=== PATIENT | female | born 1970 | race Caucasian/White ===

== ENCOUNTER 2017-08-04 08:15 | Day surgery (SDC) | payer MEDICAID ==
[~2017-08-04 08:15] MED LIST: CEFAZOLIN 1 GM INJ; CEFAZOLIN 1 GM/50 ML (PMX) 50 ML IVPB; FAMOTIDINE 20 MG INJ; SOD CHLORIDE 0.9% 1,000 ML IV
[2017-08-04 10:07] LABS: ADD MAN DIFF? NO
[2017-08-04 10:09] LABS: BASOPHIL # 0.1 10^3/ul (0.0-0.1); BASOPHILS % 0.8 % (0.0-2.0); EOSINOPHILS % 0.6 % (0.0-7.0); HEMATOCRIT 40.1 % (37.0-47.0); HEMOGLOBIN 13.7 g/dl (12.0-16.0); LYMPHOCYTES # 1.8 10^3/ul (0.8-2.9); LYMPHOCYTES % 29.4 % (15.0-51.0); MEAN CORPUSCULAR HEMOGLOBIN 31.4 pg (29.0-33.0); MEAN CORPUSCULAR HGB CONC 34.2 g/dl (32.0-37.0); MEAN CORPUSCULAR VOLUME 91.8 fl (82.0-101.0); MONOCYTE # 0.5 10^3/ul (0.3-0.9); MONOCYTES % 8.1 % (0.0-11.0); NEUTROPHIL # 3.8 10^3/ul (1.6-7.5); NEUTROPHILS % 60.9 % (39.0-77.0); PLATELET COUNT 227 10^3/UL (140-415); RED BLOOD COUNT 4.37 10^6/ul (4.20-5.40)
[2017-08-04 10:09] LABS: WHITE BLOOD COUNT 6.2 10^3/ul (4.8-10.8)
[2017-08-04 10:29] LABS: ALANINE AMINOTRANSFERASE 30 IU/L (13-69); ALBUMIN 4.6 g/dl (3.3-4.9); ALBUMIN/GLOBULIN RATIO 1.12; ALKALINE PHOSPHATASE 119 IU/L (42-121); ANION GAP 17 (8-16); ASPARTATE AMINO TRANSFERASE 26 IU/L (15-46); BILIRUBIN,INDIRECT 0.4 mg/dl (0-1.1); BILIRUBIN,TOTAL 0.4 mg/dl (0.2-1.3); BLOOD UREA NITROGEN 15 mg/dl (7-20); CALCIUM 9.5 mg/dl (8.4-10.2); CARBON DIOXIDE 26 mmol/L (21-31); CHLORIDE 105 mmol/L (97-110); CREATININE 0.62 mg/dl (0.44-1.00); GLUCOSE 119 mg/dl (70-220); INR 0.86; POTASSIUM 3.8 mmol/L (3.5-5.1); PROTIME 11.8 Sec (11.9-14.9); PT RATIO 0.9; SODIUM 144 mmol/L (135-144); TOTAL PROTEIN 8.7 g/dl (6.1-8.1)
[2017-08-04 10:30] LABS: PARTIAL THROMBOPLASTIN TIME 26.8 Sec (25.0-35.0)
[2017-08-04] MEDS ORDERED: MIDAZOLAM 1 MG/ML 2 ML INJ (11:08)
[2017-08-04] MEDS ORDERED: FENTAnyl 50 MCG/ML VIAL (11:08)
[2017-08-04] MEDS ORDERED: PROPOFOL 20 ML (11:08)
[2017-08-04] MEDS ORDERED: ONDANSETRON 4 MG INJ (11:25)
[2017-08-04] MEDS ORDERED: DEXAMETHASONE 4 MG/ML 1 ML INJ (11:25)
[2017-08-04] MEDS ORDERED: hydrALAzine 20 MG INJ IV (11:30)
[2017-08-04] MEDS ORDERED: HYDROmorphONE (0.2 MG/ML) 10ML SYG IV ×3 (11:30)
[2017-08-04] MEDS ORDERED: FENTAnyl 50 MCG/ML VIAL IV ×3 (11:30)
[2017-08-04] MEDS ORDERED: OXYCODONE/ACETAMINOPHEN (5/325) TAB PO (11:30)
[2017-08-04] MEDS ORDERED: DIPHENHYDRAMINE 50 MG INJ IV (11:30)
[2017-08-04] MEDS ORDERED: PROCHLORPERAZINE 10 MG INJ IV (11:30)
[2017-08-04] MEDS: LIDOCAINE 1%/EPI 30 ML INJ INJ (11:33)
[2017-08-04] MEDS ORDERED: EPHEDrine SULFATE 50 MG/5 ML SYG (11:46)
[2017-08-04] MEDS: ONDANSETRON 4 MG INJ IV (12:52)
[2017-08-04] MEDS: MEPERIDINE 25 MG INJ IV (12:53)
[2017-08-04] MEDS: LABETALOL HCL 20MG INJ IV (12:54)
== END 2017-08-04 14:35 | disposition home or self-care (01) ==
LOC: SDS 08:15
DX: Z45.2 Encounter for adjustment and management of vascular access device (principal); Z85.3 Personal history of malignant neoplasm of breast; I10 Essential (primary) hypertension
CPT/HCPCS: 36590; 80053; 85025; 85610; 85730; 88300